=== PATIENT | female | born 1990 | race Caucasian/White ===

== ENCOUNTER 2020-12-08 23:27 | Inpatient (IN) | payer BC ==
[2020-12-09] MEDS ORDERED: NS / Oxytocin 40 units/1000ml 1,000 ML IV PRN
[2020-12-09] MEDS ORDERED: Lidocaine 1% (PF) 30 ML VIAL SC PRN
[2020-12-09] MEDS ORDERED: Promethazine HCl 25 MG/ML VIAL IM PRN
[2020-12-09] MEDS ORDERED: Docusate 100 MG CAP PO PRN
[2020-12-09] MEDS ORDERED: Misoprostol 200 MCG TAB PR PRN
[2020-12-09] MEDS ORDERED: Butorphanol Tartrate 1 MG/ML VIAL SLOW IVP PRN
[2020-12-09] MEDS ORDERED: Lactated Ringer's 1,000 ML IV SCH
[2020-12-09] MEDS ORDERED: Ibuprofen 800 MG TAB PO PRN
[2020-12-09] MEDS ORDERED: Acetaminophen 500 MG TAB PO PRN
[2020-12-09] MEDS ORDERED: NS w/ Oxytocin 30 units 500 ML IV PRN (00:11)
[2020-12-09 00:19] VITALS: BMI 28.5
[2020-12-09] MEDS ORDERED: Oxytocin 10 UNITS/ML VIAL ONE (00:35)
[2020-12-09 01:02] LABS: Hemoglobin 9.9 g/dL (12.0-15.5); Mean Corpuscular Hemoglobin 24.5 pg (27.0-33.0); Mean Corpuscular Volume 76.5 fl (81.6-98.3); Mean Platelet Volume 11.1 fl (7.4-10.4); Platelet Count 207 10x3/uL (150-450); RBC Distribution Width 13.9 % (11.5-14.5); Red Blood Cell (RBC) Count 4.04 10x6/uL (3.90-5.03); White Blood Cell (WBC) Count 9.5 10x3/uL (3.5-10.5)
[2020-12-09 01:19] LABS: Hep B Surf Ag Non-Reactive S/CO (NonReactive); Syphilis Antibody Nonreactive (Nonreactive); Syphilis Antibody Index 0.03 S/CO (<1.00 Non-Reactive)
[2020-12-09 02:01] LABS: HBSAg Index 0.15 S/CO (0-0.99)
[2020-12-09] MEDS ORDERED: Methylergonovine 0.2 MG/ML VIAL IM PRN (07:03)
[2020-12-09] MEDS ORDERED: Benzocaine-Menthol 82.5 ML CAN TOP PRN (07:03)
[2020-12-09] MEDS ORDERED: HYDROcodone/Acetaminophen 5/325 mg Tablet PO PRN (07:03)
[2020-12-09] MEDS ORDERED: Misoprostol 200 MCG TAB VAG PRN (07:03)
[2020-12-09] MEDS ORDERED: Bisacodyl 10 MG SUPP PR PRN (07:03)
[2020-12-09] MEDS ORDERED: Adacel (T-DAP) 0.5 ML SYRINGE IM ONE (07:03)
[2020-12-09] MEDS ORDERED: Ondansetron PF 4 MG/2 ML Vial IVP PRN ×2 (07:03)
[2020-12-09] MEDS ORDERED: Milk Of Magnesia 30 ML UDCUP PO PRN (07:03)
[2020-12-09] MEDS ORDERED: hydrALAZINE 20 MG/ML VIAL SLOW IVP PRN ×2 (07:03)
[2020-12-09] MEDS ORDERED: NS w/ Oxytocin 30 units 500 ML IVPB SCH (07:15)
[2020-12-09] MEDS: HYDROcodone/Acetaminophen 5/325 mg Tablet PO PRN ×3 (07:26→18:18)
[2020-12-09] MEDS: Docusate Calcium (SURFAK) 240 MG CAP PO SCH ×2 (10:40→22:39)
[2020-12-09] MEDS: Prenatal Vitamin 1 TAB PO SCH (10:40)
[2020-12-09] MEDS: Ferrous Sulfate 325 MG TAB PO SCH ×2 (10:40→18:18)
[2020-12-09 13:42] LABS: SARS-CoV-2 PCR by NAA Not Detected (NotDetected)
[2020-12-09] MEDS: Ibuprofen 800 MG TAB PO SCH ×2 (15:32→22:39)
[2020-12-10] MEDS: Ibuprofen 800 MG TAB PO SCH ×2 (05:19→14:45)
[2020-12-10 08:06] VITALS: BP 97/59; TEMP 98.4
[2020-12-10] MEDS: Docusate Calcium (SURFAK) 240 MG CAP PO SCH (08:32)
[2020-12-10] MEDS: Prenatal Vitamin 1 TAB PO SCH (08:32)
[2020-12-10] MEDS: Ferrous Sulfate 325 MG TAB PO SCH (08:32)
== END 2020-12-10 16:40 | disposition home or self-care (01) | DRG 807 ==
LOC: CSHLD/OP 23:27 → CSHLD 12-09 00:56 → CSHPP 12-09 10:16
PROVIDERS: ADMIT Obstetrics & Gynecology; ATTEND Obstetrics & Gynecology
PROC: 10E0XZZ Delivery of Products of Conception, External Approach (ICD-10-PCS; principal; 2020-12-09)
PROC: 0HQ9XZZ Repair Perineum Skin, External Approach (ICD-10-PCS; 2020-12-09)
DX: O48.0 Post-term pregnancy (principal); Z37.0 Single live birth; Z3A.40 40 weeks gestation of pregnancy; Z20.822 Contact with and (suspected) exposure to COVID-19; O70.0 First degree perineal laceration during delivery
CPT/HCPCS: 85027; 86780; 86850; 86900; 86901; 87340; 87635; 99285; U0003; U0005